=== PATIENT | female | born 1960 | race Caucasian/White ===

== ENCOUNTER → 2020-09-01 02:44 | Outpatient (CLI) | payer SELFPAY ==
[2020-09-02 04:48] LABS: Vitamin D 25 Total 43.9 ng/ml (30-100)
== END ==
PROVIDERS: PCP Family Medicine; Visit Provider Internal Medicine Endocrinology, Diabetes & Metabolism
DX: E55.9 Vitamin D deficiency, unspecified (principal); C73 Malignant neoplasm of thyroid gland; K21.9 Gastro-esophageal reflux disease without esophagitis
CPT/HCPCS: 36415; 82306

== ENCOUNTER 2021-09-09 03:54 | Outpatient (CLI) | payer OTHER, SELFPAY ==
[2021-09-09 15:33] LABS: TSH 0.55 uIU/mL (0.36-3.74)
[2021-09-09 21:59] LABS: Thyroglobulin Antibody <15 U/mL (<=60)
== END 2021-09-09 03:55 | disposition home or self-care (01) ==
PROVIDERS: PCP Family Medicine; Visit Provider Internal Medicine Endocrinology, Diabetes & Metabolism
DX: C73 Malignant neoplasm of thyroid gland (principal); E55.9 Vitamin D deficiency, unspecified
CPT/HCPCS: 36415; 84443; 86800

== ENCOUNTER 2023-01-27 15:07 | Emergency (ER) | payer OTHER, SELFPAY ==
[2023-01-27 15:26] VITALS: BP 124/73; PULSE 98; RESP 18; O2SAT 97
--- NOTE | 2023-01-27 16:12 | ED.GENADUL_ITS ---
Discharge Plan Disposition Patient Disposition: Home Condition: Stable Discharge Details Clinical Impression: Encounter for postoperative wound care Primary Care Provider: Gregory Lucero ED Provider: Joann Mina Home Meds and New Rx's Prescriptions: Continued Excedrin Tension Headache 1 TAB tablet 1 tab PO PRN PRN esomeprazole magnesium [Nexium 24HR] 20 MG tablet,delayed release (DR/EC) 20 mg PO PRN PRN levothyroxine 112 MCG tablet 125 mcg PO DAILY rabeprazole 20 mg Tablet,Delayed Release (Dr/Ec) 20 mg PO DAILY pantoprazole 40 mg tablet,delayed release (DR/EC) 40 mg PO DAILY gabapentin 300 mg capsule 300 mg PO PRN PRN Patient Comments: TAKE ONE CAPSULE BY MOUTH THREE TIMES A DAY NEEDED ergocalciferol (vitamin D2) 1,250 mcg (50,000 unit) capsule 5,000 mcg PO DAILY letrozole 2.5 mg Tablet 2.5 mg PO DAILY Lactobacillus rhamnosus GG 10 billion cell Capsule 1 cap PO DAILY mecobalamin (vitamin B12) 1,000 mcg Tablet,Chewable 1,000 mcg PO DAILY Discharge Instructions Instructions: Care For Your Absorbable Stitches (ED) Additional Instructions: Continue routine wound care as previously directed. Keep dressing clean dry and intact Monitor for purulent drainage fever increased pain or redness at the site and report immediately to your surgical team. Referrals: [facility] [Provider Group] (Call first thing Sunday for follow- up appointment with your surgical team return sooner for new or worsening symptoms) Gregory Lucero [Primary Care Provider] - Medical Decision Making Patient presents for wound check. No evidence of infection by physical exam. She is pink warm dry there is no fever vital signs are stable wound is well approximated no surrounding erythema no purulent drainage. She has some old bloody drainage on her dressing this is cleansed and redressed by nursing. She should follow-up with her outpatient team she is stable for discharge to home Medical Records Medical records reviewed: Yes I reviewed the patient's medical records. HPI General Mode of arrival: ambulatory . Date/Time Provider Initiated Documentation: 01/27/23 15:34 . Limitations to Documentation: no limitations . Information obtained by: patient . HPI Narrative: This is a 62-year-old female patient status postlumpectomy and lymph node resection on the left on November 23. Postoperatively she has had no fevers significant drainage increased pain. Today she was out and about and noted some increased drainage on her dressing. She made a phone call to her surgical team and has not received a call back so presented here for evaluation. She denies increased pain in the area she has had no fever feels in her usual state of health and improving from the procedure. Her surgical site is evaluated the wound is well approximated no stitches visualized. There is some old bloody drainage on the dressing. There is no surrounding erythema. Related Data Home Medications Medication Instructions Recorded Confirmed acetaminophen-caffeine 500 mg-65 1 tab PO PRN PRN 11/18/14 01/27/23 mg tablet (Excedrin Tension Headache) esomeprazole magnesium 20 mg 20 mg PO PRN PRN 04/25/16 03/17/18 tablet,delayed release (Nexium 24HR) levothyroxine 112 mcg tablet 125 mcg PO DAILY 03/17/18 01/27/23 Lactobacillus rhamnosus GG 10 1 cap PO DAILY 01/27/23 01/27/23 billion cell capsule ergocalciferol (vitamin D2) 1,250 5,000 mcg PO DAILY 01/27/23 01/27/23 mcg (50,000 unit) capsule gabapentin 300 mg capsule 300 mg PO PRN PRN 01/27/23 01/27/23 letrozole 2.5 mg tablet 2.5 mg PO DAILY 01/27/23 01/27/23 mecobalamin (vitamin B12) 1,000 1,000 mcg PO DAILY 01/27/23 01/27/23 mcg chewable tablet pantoprazole 40 mg tablet,delayed 40 mg PO DAILY 01/27/23 01/27/23 release rabeprazole 20 mg tablet,delayed 20 mg PO DAILY 01/27/23 01/27/23 release Allergies Allergy/AdvReac Type Severity Reaction Status Date / Time No Known Allergies Allergy Unverified 01/27/23 15:51 General Stated Complaint: Recheck DONALD: 4 Review of Systems All systems reviewed & are unremarkable except as noted in HPI and below PFSH All Active Problems (Updated 01/27/23 @ 16:17 by Joann Mina NP) Lipoma of torso (Acute) Encounter for postoperative wound care (Acute) Medical History (Updated 01/27/23 @ 16:17 by Joann Mina NP) Brain concussion GERD (gastroesophageal reflux disease) Surgical History (Updated 04/17/16 @ 14:11 by Malena Lopez) Colonoscopy - MAC (03/22/16) Dr Ballard, repeat in 7 yrs Family History Father Colon cancer Grandfather Colon cancer Maternal Uncle Colon cancer Maternal Uncle Colon cancer Social History Smoking/Tobacco Use Status: Never Smoking risk assessment performed?: Yes Drug use: Never Do you feel safe in your relationship?: Yes Exam Const General: cooperative, healthy appearing, comfortable and no acute distress Nutritional Appearance: average body habitus Orientation: alert, awake and oriented x3 HENMT Head: normal to inspection, normocephalic and atraumatic Mouth: oral mucosae normal Resp Effort & Inspection: normal respiratory effort Cardio Rate: regular rate Rhythm: regular rhythm GI Inspection: normal to inspection Skin General skin exam: ecchymosis, no fluctuance and no induration Lesions: lesion noted (Surgical incision well approximated some old bloody drainage on her gauze ) Rashes: no rashes Other: No purulent drainage. Area around incision is firm not fluctuant Course Vital Signs Vital signs: Vital Signs Pulse 98 H 01/27/23 15:26 Respiratory Rate 18 01/27/23 15:26 Blood Pressure 124/73 01/27/23 15:26 Pulse Oximetry 97 01/27/23 15:26 Pulse 98 H 01/27/23 15:26 Respiratory Rate 18 01/27/23 15:26 Respiratory Effort Normal, Non-Labored 01/27/23 15:39 Blood Pressure 124/73 01/27/23 15:26 Blood Pressure Position Sitting 01/27/23 15:26 Pulse Oximetry 97 01/27/23 15:26 Oxygen Delivery Method Room Air 01/27/23 15:26 Oxygen Flow Rate 0 01/27/23 15:26
== END 2023-01-27 16:24 | disposition home or self-care (01) ==
PROVIDERS: Emergency Provider Nurse Practitioner Acute Care; PCP Family Medicine
DX: Z98.890 Other specified postprocedural states (principal)
CPT/HCPCS: 99283

== ENCOUNTER 2023-09-06 07:56 | Emergency (ER) | payer OTHER, SELFPAY ==
--- NOTE | 2023-09-06 07:45 | DI.RAD_ITS ---
Exam(s) XR KNEE RT 3V AP,LAT,EMILIA XR ANKLE RT COMPLETE XR TIB/FIB RT EXAM: XR KNEE RT 3V AP,LAT,EMILIA and XR tib/fib RT and XR ankle RT complete CLINICAL HISTORY: Right knee pain. TECHNIQUE: 2D digital imaging was performed of the right knee. Eight views obtained. AP, lateral an d PA tunnel views were obtained. COMPARISON: There are no priors for comparison. FINDINGS: BONES: There is an acute oblique fracture through the distal fibula. The distal aspect of the fractu re lies just at the level of the ankle mortise. No bony destructive lesion is seen. There is a small plantar calcaneal spur. There is a small enthesophyte at the posterior calcaneus. JOINTS: The knee is normally aligned. There is a small suprapatellar joint effusion of the knee. The ankle joint is well maintained. SOFT TISSUE: There is soft tissue swelling about the ankle, particularly laterally. IMPRESSION: 1. There is an acute nondisplaced fracture involving the distal fibula. The most inferior aspect of the fracture lies just at the ankle mortise. The ankle joint is well maintained. 2. No other acute fracture or dislocation is seen. 3. Small suprapatellar joint effusion. 4. Soft tissue swelling about the ankle, particularly laterally. DATA REPOSITORY: RADIATION DOSE DELIVERED:
--- NOTE | 2023-09-06 07:59 | ED.GENADUL_ITS ---
HPI General DONALD: 4 Date/Time Provider Initiated Documentation: 09/06/23 07:58. HPI Narrative: MDM This is an overall very well-appearing normothermic and not tachycardic 63-year-old female with right fibular pain status post slip and fall concerning for tibial fracture for which patient will undergo plain films. No pain out of proportion to suggest necrotizing soft tissue infection. Primary survey intact. Reassuring shock index. No chest trauma and no shortness of breath so doubt pneumothorax so did not obtain chest x-ray. Patient has been ambulatory since her injury and has a stable pelvis so my suspicion for hip fracture is low. Patient has a warm well-perfused foot and did not hyperextend her right knee so my suspicion for popliteal arterial injury is low so I do not feel that the patient requires a CT angiogram. No lacerations that would require closure. Will treat with acetaminophen and ibuprofen. No preceding chest pain syncope nausea or vomiting so do not feel that the patient requires an ECG nor laboratory evaluation. 9:11 AM I was in touch with Dr. Jimenes from orthopedics. He requested repeat ankle films to assess mortise view and lateral. He advised that if these appeared stable at that the patient could be okay for protective weightbearing in cam boot with crutches. I have medicated with oxycodone in the setting of distal fibular fracture. Will repeat plain films. 9:30 AM Patient had no PDMP records so I prescribed her 7 immediate relief morphine tablets of 50 mg each. I advised her to take a stool softener while taking these opiates. I advised her to take acetaminophen and ibuprofen prior to taking morphine. I advised her not to drink alcohol or operate machinery or drive a car while taking morphine tablets. I advised her to keep her morphine tablets locked up. I advised her to return the morphine tablets to a medication at the pharmacy or in the hospital if she did not need them after her pain resolved. She was found to have a small suprapatellar joint effusion for which she was placed in a knee immobilizer. It certainly could be that her older right knee meniscus injury has been exacerbated. She had no proximal fibular fractures to suggest [place] injury. Patient and I discussed productive weightbearing. Will proceed with empiric trial of discharge with expectant outpatient management. Chronic conditions affecting the care of the patient: N/A History obtained from an outside historian: N/A External record review: N/A Medications: Acetaminophen ibuprofen oxycodone Social determinants of health affecting disposition: N/A Management discussed with: Dr. Jimenes Treatment/interventions considered: N/A Response to therapies provided: Improved pain in the ED HPI This is a 63-year-old female arrived to the emergency department via private vehicle in the setting of right lower extremity pain. Patient was reportedly outside carrying a chicken pail & her lunch box. She slipped on an icy mat. She twisted her right ankle. She called her neighbor who brought her to the emergency department. She has been able to bear weight on her right lower extremity as she walked inside and changed into sweatpants from [employer]. She had no preceding chest pain. She did not strike her head. She is not anticoagul ated. She denies routine tobacco and illicits. She rarely drinks ethanol. She has not noticed any lacerations. No pain in her bilateral upper extremities. She does report an old right knee meniscus injury that was never repaired. She feels as if her right knee gave out on her today. Exam General: Well-appearing in no acute distress speaking in complete sentences. Head: Normocephalic, atraumatic. Eye: Extraocular eye movements intact. No conjunctival injection. No scleral icterus. Ear, nose, mouth, throat: Grossly normal inspection. Normal voice, handling secretions normally. Neck: Trachea midline. Cardiovascular: Well-perfused distal extremities. Respiratory: Nonlabored respiration. Gastrointestinal: Nondistended abdomen. Musculoskeletal: Right lower extremity with tenderness to the proximal fibula and down through the fibula to the lateral malleolus. Right foot warm well- perfused with 2+ right PT and DP pulses. Cap refill less than 2 seconds in the right toes. Right foot nontender. Right knee with no significant laxity to valgus nor varus stress testing. No tenderness through right femur. Left lower extremity nontender. Bilateral upper extremities nontender. Skin: Normal for age and race, grossly normal temperature and turgor. No acute rash. Neurologic: Alert and appropriate, no apparent acute deficits. GCS 15 Psychiatric: Mood and manner are appropriate. Grooming and personal hygiene are appropriate. Related Data Home Medications Medication Instructions Recorded Confirmed acetaminophen-caffeine 500 mg-65 1 tab PO PRN PRN 11/18/09/06/24 mg tablet (Excedrin Tension Headache) levothyroxine 112 mcg tablet 125 mcg PO DAILY 03/17/18 09/06/23 Lactobacillus rhamnosus GG 10 1 cap PO DAILY 01/27/23 09/06/23 billion cell capsule ergocalciferol (vitamin D2) 1,250 5,000 mcg PO .weekly 01/27/23 09/06/23 mcg (50,000 unit) capsule mecobalamin (vitamin B12) 1,000 1,000 mcg PO .qod 01/27/23 09/06/23 mcg chewable tablet pantoprazole 40 mg tablet,delayed 40 mg PO DAILY 01/27/23 09/06/23 release morphine 15 mg immediate release 15 mg PO Q8H PRN #7 tabs 09/06/23 tablet Previous Rx's Medication Instructions Recorded morphine 15 mg immediate release 15 mg PO Q8H PRN #7 tabs 09/06/23 tablet Allergies Allergy/AdvReac Type Severity Reaction Status Date / Time No Known Allergies Allergy Unverified 09/06/23 08:06 PFSH All Active Problems (Updated 09/06/23 @ 09:22 by Gregory Ng MD) Closed fracture of distal end of right fibula (Acute) Lipoma of torso (Acute) Medical History (Updated 09/06/23 @ 09:22 by Gregory Ng MD) GERD (gastroesophageal reflux disease) Brain concussion Surgical History (Updated 04/17/16 @ 14:11 by Malena Lopez) Colonoscopy - MAC (03/22/16) Dr Ballard, repeat in 7 yrs Family History Father Colon cancer Grandfather Colon cancer Maternal Uncle Colon cancer Maternal Uncle Colon cancer Social History Smoking/Tobacco Use Status: Never Smoking risk assessment performed?: Yes Alcohol Intake: current Alcohol Intake frequency: holidays/special occasions only Alcohol type: beer Drug use: Never Substance use type: does not use Housing: house Do you feel safe at home: Yes Do you feel safe in your relationship?: Yes Medical Decision Making Quality:SDOH Health Related Social Needs: No Data to Display Discharge Plan Disposition Patient Disposition: Home Discharge Details Clinical Impression: Closed fracture of distal end of right fibula Primary Care Provider: April Byers ED Provider: Gregory Ng Home Meds and New Rx's Prescriptions: New morphine 15 mg tablet 15 mg PO Q8H PRNQty: 7 0RF Continued Excedrin Tension Headache 1 TAB tablet 1 tab PO PRN PRN levothyroxine 112 MCG tablet 125 mcg PO DAILY pantoprazole 40 mg tablet,delayed release (DR/EC) 40 mg PO DAILY ergocalciferol (vitamin D2) 1,250 mcg (50,000 unit) capsule 5,000 mcg PO .weekly Lactobacillus rhamnosus GG 10 billion cell Capsule 1 cap PO DAILY mecobalamin (vitamin B12) 1,000 mcg Tablet,Chewable 1,000 mcg PO .qod Discharge Instructions Instructions: Leg Fracture (ED) Additional Instructions: You were seen in the emergency department for your leg pain. You are found to have an acute nondisplaced fracture of your distal fibula as we discussed. Please wear this walking boot and you may bear weight protectively using crutches as needed. Please follow-up with orthopedic team. Please return to the emergency department if you develop worsening pain. Please also wear this knee brace. You may remove your walking boot and knee brace while you are resting. For your pain please take medications as follows: 1. Take acetaminophen (Tylenol), 1,000 mg (two 500 mg tabs) every 6 hours 2. Take ibuprofen (Advil), 400 mg every 6 hours. You are also receiving a stronger medication for pain. Please do not drive drink alcohol or operate any machinery while taking this stronger medication. If you have leftover morphine tablets following your injury please return these to the pharmacy or return this to the hospital where there is a medication disposal box. Please keep your opiates locked up. Please consider taking a stool softener if you use any of your morphine tablets as these can cause constipation. Referrals: Deniz Jimenes MD [ [facility] STAFF PHYSICIAN] - Discharge Data Discharge Date/Time-TO BE ENTERED AT DEPARTURE: 09/06/23 10:08
[2023-09-06 08:00] VITALS: BP 141/67; PULSE 69; RESP 16; TEMP 37.1; O2SAT 98
[2023-09-06] MEDS: Acetaminophen 500 MG TAB 1000 MG PO (08:12)
[2023-09-06] MEDS: Ibuprofen 600 MG TAB PO (08:12)
[2023-09-06] MEDS: oxyCODONE 5 MG TAB PO (09:07)
--- NOTE | 2023-09-06 09:35 | DI.RAD_ITS ---
Exam(s) XR ANKLE RT COMPLETE EXAM: XR ANKLE RT COMPLETE CLINICAL HISTORY: Ortho looking for better mortise and lateral. TECHNIQUE: 2D digital imaging was performed of the right ankle. Three images were obtained. AP, la teral and oblique views were obtained. COMPARISON: CR XR ANKLE RT COMPLETE from 09/06/2023 FINDINGS: BONES: There is again seen a minimally displaced oblique fracture of the distal fibula. No new fract ure is seen. No bony destructive lesion is seen. There is a small plantar calcaneal spur. JOINTS: The ankle mortise is normally aligned. SOFT TISSUE: Soft tissue swelling seen about the ankle particularly laterally. IMPRESSION: Stable alignment of the distal right fibular fracture. DATA REPOSITORY: RADIATION DOSE DELIVERED:
== END 2023-09-06 10:08 | disposition home or self-care (01) ==
PROVIDERS: Emergency Provider Emergency Medicine; PCP Nurse Practitioner
DX: S82.434A Nondisplaced oblique fracture of shaft of right fibula, initial encounter for closed fracture (principal); M77.31 Calcaneal spur, right foot; M25.461 Effusion, right knee; W01.0XXA Fall on same level from slipping, tripping and stumbling without subsequent striking against object, initial encounter; Y93.01 Activity, walking, marching and hiking; Y92.018 Other place in single-family (private) house as the place of occurrence of the external cause
CPT/HCPCS: 73562; 99284; 73590; 73610

== ENCOUNTER 2023-09-11 12:40 | Outpatient (CLI) | payer OTHER, SELFPAY ==
--- NOTE | 2023-09-11 08:00 | DI.RAD_ITS ---
Exam(s) XR ANKLE RT COMPLETE EXAM: XR ANKLE RT COMPLETE CLINICAL HISTORY: f/u fracture. TECHNIQUE: 2D digital imaging was performed. COMPARISON: CR XR ANKLE RT COMPLETE from 09/06/2023 FINDINGS: Five views. The oblique fracture in the distal fibula appears unchanged from the above study. No other fractures identified. Talar dome unremarkable. [place] stress view reveals minimal widening of the medial aspect of the ankle mortise. IMPRESSION: As above. DATA REPOSITORY: RADIATION DOSE DELIVERED:
== END 2023-09-11 12:41 | disposition home or self-care (01) ==
LOC: DIORS 12:40
PROVIDERS: PCP Nurse Practitioner; Visit Provider Student in an Organized Health Care Education/Training Program
DX: S82.831D Other fracture of upper and lower end of right fibula, subsequent encounter for closed fracture with routine healing (principal); X58.XXXD Exposure to other specified factors, subsequent encounter
CPT/HCPCS: 73610

== ENCOUNTER 2023-09-26 15:14 | Outpatient (CLI) | payer OTHER, SELFPAY ==
--- NOTE | 2023-09-26 08:37 | DI.RAD_ITS ---
Exam(s) XR ANKLE RT COMPLETE EXAM: XR ANKLE RT COMPLETE CLINICAL HISTORY: F/U FRACTURE. TECHNIQUE: 2D digital imaging was performed. Three views. COMPARISON: CR XR ANKLE RT COMPLETE from 09/11/2023 FINDINGS: BONES: There has been no change in the alignment the distal fibular fracture. No bony destructive le ryan is seen. Heel spur. JOINTS: The ankle mortise is normally aligned. No joint space narrowing. SOFT TISSUE: Diffuse swelling. IMPRESSION: Stable alignment of distal fibular fracture. No ankle mortise widening. DATA REPOSITORY: RADIATION DOSE DELIVERED:
== END 2023-09-26 15:15 | disposition home or self-care (01) ==
LOC: DIORS 15:15
PROVIDERS: PCP Nurse Practitioner; Visit Provider Student in an Organized Health Care Education/Training Program
DX: S82.831D Other fracture of upper and lower end of right fibula, subsequent encounter for closed fracture with routine healing (principal); X58.XXXD Exposure to other specified factors, subsequent encounter
CPT/HCPCS: 73610

== ENCOUNTER 2023-10-18 08:23 | Outpatient (CLI) | payer OTHER, SELFPAY ==
--- NOTE | 2023-10-18 08:15 | DI.RAD_ITS ---
Exam(s) XR ANKLE RT COMPLETE EXAM: XR ANKLE RT COMPLETE CLINICAL HISTORY: RIGHT FIB FX. TECHNIQUE: 2D digital imaging was performed. Three views. COMPARISON: CR XR ANKLE RT COMPLETE from 09/26/2023 FINDINGS: BONES: There is no change in the alignment of the distal fibular fracture. There is increased callus formation surrounding the fracture consistent with healing. No bony destructive lesion is seen. H eel spur again noted. JOINTS: The ankle mortise is normally aligned. Ankle joint space is maintained. SOFT TISSUE: Swelling IMPRESSION: Healing fracture of the distal fibula. DATA REPOSITORY: RADIATION DOSE DELIVERED:
== END 2023-10-18 08:24 | disposition home or self-care (01) ==
PROVIDERS: PCP Nurse Practitioner; Referring Provider Nurse Practitioner; Visit Provider Physician Assistant
DX: S82.831D Other fracture of upper and lower end of right fibula, subsequent encounter for closed fracture with routine healing (principal); X58.XXXD Exposure to other specified factors, subsequent encounter
CPT/HCPCS: 73610

== ENCOUNTER → 2023-10-30 02:52 | Outpatient (CLI) | payer OTHER, SELFPAY ==
--- NOTE | 2023-10-30 08:15 | DI.MRI_ITS ---
Exam(s) MR LOWER JOINT RT WO EXAM: MR LOWER JOINT RT WO CLINICAL HISTORY: PAIN,tear medial meniscus rt knee, [id number]. TECHNIQUE: Multiplanar multisequence MRI was performed. COMPARISON: CR XR KNEE RT 3V AP,LAT,EMILIA from 09/06/2023 FINDINGS: BONES: There is no fracture or contusion pattern. Small degenerative cysts near the tibial spines. JOINTS: A small to moderate-sized joint effusion is present. Articular cartilage: Patellofemoral joint: Tiny focal defect near apex. Medial femoral tibial joint: Articular cartilage is unremarkable. Lateral femoral tibial joint: Articular cartilage is unremarkable. TENDONS: Extensor mechanism: Unremarkable. Medial retinaculum: Unremarkable. Lateral retinaculum: Unremarkable. Popliteus: Unremarkable. MUSCLES: Unremarkable. MENISCI: The medial meniscus shows a bucket-handle type tear, with a portion of the meniscus displaced inferio r to the P posterior cruciate ligament. The lateral meniscus is unremarkable. SOFT TISSUES: Tiny popliteal cyst. Mild edema anterior to patellar tendon. LIGAMENTS: Anterior Cruciate: Full-thickness tear. Posterior Cruciate: Unremarkable. Medial Collateral:Mild surrounding edema but no evidence of tear. Lateral Collateral: Unremarkable. IMPRESSION: Full-thickness tear of the anterior cruciate ligament. Bucket-handle type tear of the medial meniscus. Question medial collateral ligament sprain. DATA REPOSITORY:
== END ==
PROVIDERS: PCP Nurse Practitioner; Visit Provider Student in an Organized Health Care Education/Training Program
DX: S83.241A Other tear of medial meniscus, current injury, right knee, initial encounter (principal); X58.XXXA Exposure to other specified factors, initial encounter
CPT/HCPCS: 73721

== ENCOUNTER 2023-11-13 13:16 | Outpatient (CLI) | payer OTHER, SELFPAY ==
--- NOTE | 2023-11-13 11:30 | DI.RAD_ITS ---
Exam(s) XR ANKLE RT COMPLETE EXAM: XR ANKLE RT COMPLETE CLINICAL HISTORY: F/U FRACTURE. TECHNIQUE: 2D digital imaging was performed of the right ankle. Four images were obtained. AP, lat eral and oblique views were obtained. COMPARISON: CR XR ANKLE RT COMPLETE from 10/18/2023 FINDINGS: BONES: There has been no change in alignment of the distal fibular fracture. Callus formation has de veloped about the fracture consistent with some interval healing. There is again seen a small planta r calcaneal spur. No bony destructive lesion is seen. JOINTS: The ankle mortise is normally aligned. SOFT TISSUE: Normal. IMPRESSION: No change in alignment of the distal fibular fracture. DATA REPOSITORY: RADIATION DOSE DELIVERED:
== END 2023-11-13 13:17 | disposition home or self-care (01) ==
LOC: DIORS 13:17
PROVIDERS: PCP Nurse Practitioner; Visit Provider Student in an Organized Health Care Education/Training Program
DX: S82.831D Other fracture of upper and lower end of right fibula, subsequent encounter for closed fracture with routine healing (principal); X58.XXXD Exposure to other specified factors, subsequent encounter
CPT/HCPCS: 73610

== ENCOUNTER 2023-12-05 15:41 | Outpatient (CLI) | payer OTHER, SELFPAY ==
--- NOTE | 2023-12-05 12:45 | DI.RAD_ITS ---
Exam(s) XR ANKLE RT COMPLETE EXAM: XR ANKLE RT COMPLETE CLINICAL HISTORY: F/U FRACTURE. TECHNIQUE: 2D digital imaging was performed of the right ankle. Three images were obtained. AP, la teral and oblique views were obtained. COMPARISON: CR XR ANKLE RT COMPLETE from 11/13/2023 FINDINGS: BONES: There has been no change in alignment of the distal right fibular fracture. There has been in creased callus formation about the fracture since the prior examination. The fracture line is still well visualized. There is a small plantar calcaneal spur. There is a small enthesophyte at the post erior calcaneus. No bony destructive lesion is seen. JOINTS: The ankle mortise is normally aligned. SOFT TISSUE: Soft tissue swelling about the ankle. IMPRESSION: Stable alignment of the distal right fibular fracture which shows evidence of further healing. DATA REPOSITORY: RADIATION DOSE DELIVERED:
== END 2023-12-05 15:42 | disposition home or self-care (01) ==
LOC: DIORS 15:41
PROVIDERS: PCP Nurse Practitioner; Visit Provider Student in an Organized Health Care Education/Training Program
DX: S82.831D Other fracture of upper and lower end of right fibula, subsequent encounter for closed fracture with routine healing (principal); X58.XXXD Exposure to other specified factors, subsequent encounter
CPT/HCPCS: 73610

== ENCOUNTER 2023-12-07 10:30 | Day surgery (SDC) | payer OTHER, SELFPAY ==
[2023-12-07] VITALS (13 sets, daily range): BP systolic 94–140; BP diastolic 49–73; PULSE 59–81; RESP 12–20; TEMP 36.2–36.8; O2SAT 94–99; BMI 31.1
--- NOTE | 2023-12-07 07:14 | W.PM.DSUDISC ---
Date of service: 12/07/23 Time of Service: 16:00 Discharge Plan Disposition Patient Disposition: Home Condition: Stable Discharge Details Attending Provider: Deniz Jimenes Primary Care Provider: April Byers Home Meds and New Rx's Prescriptions: New naproxen 250 mg tablet 250 - 500 mg PO BID PRN (Reason: moderate pain and swelling) Qty: 40 0RF oxycodone 5 mg tablet 5 - 10 mg PO .q4-6h PRN (Reason: severe pain) Qty: 18 0RF aspirin 81 mg capsule 81 mg PO DAILY 14 Days Qty: 14 0RF Continued Excedrin Tension Headache 1 TAB tablet 1 tab PO PRN PRN levothyroxine 112 MCG tablet 125 mcg PO DAILY pantoprazole 40 mg tablet,delayed release (DR/EC) 40 mg PO DAILY ergocalciferol (vitamin D2) 1,250 mcg (50,000 unit) capsule 5,000 mcg PO .weekly Lactobacillus rhamnosus GG 10 billion cell Capsule 1 cap PO DAILY Discharge Instructions Additional Instructions: Surgery: Right knee arthroscopy with ACL reconstruction (allograft) and partial medial & lateral meniscectomy Activity: Weightbearing as tolerated. No brace or crutches needed as soon as comfortable and stable on knee and ankle. Restore full knee extension as soon as possible. Perform early quad sets/quadriceps isometrics. Gradually increase flexion to full. Recommend elevation to minimize swelling discomfort. Encourage ankle pumps and wiggle toes to improve circulation. A physical therapy prescription will be sent electronically to begin in about 3 weeks. Avoid sports activities for about 9 months. Prescriptions: Aspirin 81 mg take 1 daily to prevent a blood clot for 14 days Naproxen 250 mg take 1-2 every 12 hours with a meal as needed for moderate pain Oxycodone 5 mg take 1-2 every 4-6 hours as needed for severe pain You may use [id number] Tylenol (acetaminophen) as needed for mild pain. These pain medications may be taken all at once or in different combinations as needed. Also, recommend Colace (docusate) as a stool softener as surgery and pain medicine cause constipation. You may try [id number] diphenhydramine (Benadryl) 25-50 mg nightly as a sleep aid Dressings: Leave dressing in place for 3 days. Loosen/adjust Epifanio bandage as needed for comfort. May then remove and leave open to air or cover incisions with Band-Aids. Leave the sticky Steri-Strips in place until they fall off or remove them after you shower. May shower after 5 days. Follow-up: 10-[address] Jimenes You may take off the leg compression stockings this evening at home. You may also leave them on a few days longer if you have a history of leg swelling or edema. Let us know right away if you develop any redness, drainage, fevers, chest pain, or trouble breathing. Do not drink alcohol or drive for at least 24 hours after anesthesia. Please call the office during business hours with any questions or concerns. Stand Alone Forms: Anesthesia Discharge Inst., Igor.Nerve Block Instructions, Janine Love (DSU) Referrals: Deniz Jimenes MD [ [facility] STAFF PHYSICIAN] - 12/19/23 11:30 am Discharge Orders Discharge Orders: Discharge Order (Routine); Ordered 12/07/23 Ordered By: Yazmin Pacheco DS: Diagnosis Discharge Diagnosis (1) Right ACL tear: Status: Acute (2) Tear of medial meniscus of right knee: Status: Acute
--- NOTE | 2023-12-07 07:24 | W.PM.OP ---
Date of service: 12/07/23 Time of Service: 12:30 Operative Note Operative Note DATE OF PROCEDURE: 12/07/23 PRE-OP DIAGNOSIS: Right knee: 1. ACL rupture 2. Bucket handle medial meniscus tear 3. Chondromalacia Right knee: 1. ACL rupture 2. Bucket handle medial meniscus tear 3. Chondromalacia 4. Small posterior horn lateral meniscus tear PROCEDURE: Right knee: 1. ACL reconstruction, CPT #69360: Quadriceps allograft 2. Partial medial & lateral meniscectomy, CPT #80281 SURGEON: Deniz Jimenes MANAGER FRONT OFFICE: Yazmin Pacheco ANESTHESIA TYPE: Local By Surgeon, General LMA/ETT and Primary Nerve Block Refer to Anesthesia Record ESTIMATED BLOOD LOSS: 10 TOURNIQUET TIME: 0 COMPLICATIONS: None Patient was transported to: PACU Patient's condition: stable Implants: Arthrex ACL TightRope II RT and ABS with 8x12 mm cortical button QuadLink pre-sutured quadriceps allograft: 9.5 x 67 mm Indications: Please see complete medical record for details. Findings: Exam under anesthesia: Full range of motion, stable varus and valgus stress, grossly positive Huong testing. Positive pivot shift. Arthroscopic findings: Obviously displaced bucket-handle medial meniscus tear containing the majority of the posterior horn. Degenerative and enlarged frayed displaced meniscus tissue. Small posterior horn lateral meniscus tear near the root with partial root involvement. Moderate diffuse chondromalacia including moderate medial compartment narrowing. Complete ACL mid substance tear. Procedure Description: In the operating room, general anesthesia was induced. The patient was positioned supine on the operating room table. All bony prominences were well-padded. Preoperative antibiotics were administered. The knee was prepped and draped in the usual sterile fashion. The correct patient, procedure, and side of the procedure were all verified prior to incision. Exam under anesthesia was performed. Local anesthetic containing epinephrine was infiltrated about the planned anteromedial, anterolateral, lateral distal femoral, and pretibial surgery sites. The standard high and tight anterolateral and anteromedial portals were established and a complete diagnostic arthroscopy was performed with relevant findings detailed above. A passport cannula was inserted in both the anteromedial and anterolateral portals. The large displaced medial meniscus tissue was attempted to be reduced, it appeared quite degenerative and the medial compartment moderately narrowed. It could be reduced using the blunt obturator into the medial compartment, but did not appear to be good enough quality at the patient's age and considering the compartment narrowing to really attempt repair. It was then readily removed using the mechanical shaver and meniscal biters to contour the meniscal remnant into a stable margin. There was moderate remnant anterior horn and body, and more diminutive remnant posteriorly. The lateral meniscus then inspected and demonstrated mild fraying and radial tearing partially near the root. This was debrided lightly with mechanical shaver and meniscal biters to a more stable appropriate margin. In the intercondylar area, the ACL remnant was removed leaving enough footprint on the femur and tibia to localize anatomic socket placement. A small notchplasty was performed to allow proper visualization of the back wall. The graft was measured and prepared on the back table. The TightRope II BTB and TightRope II ABS adjustable-loop cortical suspensory fixation implants were loaded on QuadLink pre-sutured quadriceps allograft. The femoral and measured 9.5 mm and tibial end 10 mm. The graft was marked at 20 mm from each end. On the ABS side, the tensioning sutures were marked and a shuttle suture was added. The graft was manually tensioned and the construct did not demonstrate any elongation. The graft was then compressed in a graft tube and covered with vancomycin soaked sponges. The femoral guide was then placed through the anterolateral portal carefully targeting the appropriate anatomic ACL origin. The outer 9 mm diameter of the guide was positioned anatomically with appropriate space between the proximal and posterior articular margins. On the lateral thigh, drill guide position and angle adjusted to about 60 degree angle to the longitudinal axis of the femur in the coronal plane and 20 degree angle to the trans-epicondylar axis in the axial plane to create the most optimal femoral socket. Knife and snap were used to open the skin and IT band and placed the drill guide on bone while maintaining appropriate position on the lateral wall. The tunnel length was noted to be used for marking and passing the femoral button. The flip cutter was then drilled to the appropriate location. The drill guide malleted 7 mm into the cortex. The remainder of the targeting guide removed. The FlipCutter was deployed to 9.5 mm and retrograde reaming done to a depth of 30 mm. Bony debris was removed with the shaver. The flip cutter was then closed, withdrawn, and a FiberStick used to pass a #2 FiberWire shuttle stitch, which was withdrawn out the anterolateral portal. The tibial guide was then used to target the anatomic ACL insertion through the anteromedial portal. The drill angle adjusted to 57.5 degrees and a pretibial incision made. The drill guide was placed on bone, tunnel length noted, and the flip cutter drilled to the appropriate location. The drill guide malleted 7 mm into the cortex. The remainder of the targeting guide removed. The FlipCutter was deployed to 10mm and retrograde reaming done to a depth of 30 mm. Bony debris was removed with the shaver. The flip cutter was then closed, withdrawn, and a FiberStick used to pass a #2 FiberWire shuttle stitch, which was withdrawn out the anteromedial portal. The mechanical shaver was used to remove bone debris as well as chamfer and remove soft tissue from the edges of the sockets. A femoral shuttle sutures were withdrawn out the anterior medial portal. The PassPort was removed. This portal dilated to accommodate the graft size. The graft was brought over to the knee and the femoral sutures shuttled out the lateral thigh and advanced until the button was near the far cortex. Under arthroscopic visualization with the knee slightly hyperflexed, and the button was then passed and flipped on the far cortex. Counter traction was then maintained on the tibial side of the graft while it was carefully advanced into the knee and then about 15 mm into the femoral socket. The tibial sutures were then shuttled through the tibial tunnel and passing stitch removed while carefully noting the tensioning stitches. The graft was then dunked about 15 mm into the tibial socket. 8x12 mm ABS button was then loaded to the ABS loop and tension sutures used to bring the cortical button down to bone. The graft was advanced and then provisionally tensioned on both the femoral and tibial sides. The knee was then cycled 22 times, tensioning rechecked, and final tightening done with the knee in full extension with a moderate reverse Huong maintained. The graft position and tension were appropriate. There was no impingement in full extension. Huong exam was stable. Femoral passing sutures were removed. Backup knots were then tied on both sides and suture tails cut. The knee and all portals were copiously irrigated and then knee drained of arthroscopic fluid. 3-0 Monocryl was used to close the portals and small incisions in a buried interrupted fashion. Mastisol, Steri-Strips, Xeroform, 4 x 4 gauze, and sterile soft roll was applied. The extremity was wrapped gently with an Epifanio bandage. A soft knee immobilizer placed. The patient awoke from anesthesia without complication and was transferred to the recovery room in a stable condition.
--- NOTE | 2023-12-07 11:31 | W.ANESPRE ---
General Info Date of Service Date Performed: 12/07/23 Height: 5 ft 3 in Weight: 79.7 kg Body Mass Index (BMI): 31.1 Surgical Procedure: Operation Date: 12/07/23 12:55 Proposed Procedure Side Surgeon p Knee ACL Reconstruction (Allograft). Medial Menisectomy VS Repair Right Deniz Jimenes MD Meds Allergies and Home Medications Allergies Allergy/AdvReac Type Severity Reaction Status Date / Time No Known Allergies Allergy Verified 12/07/23 10:49 Home Medication Medication Instructions Recorded acetaminophen-caffeine 500 mg-65 1 tab PO PRN PRN 11/18/15 mg tablet (Excedrin Tension Headache) levothyroxine 112 mcg tablet 125 mcg PO DAILY 03/17/18 Lactobacillus rhamnosus GG 10 1 cap PO DAILY 01/27/23 billion cell capsule ergocalciferol (vitamin D2) 1,250 5,000 mcg PO .weekly 01/27/23 mcg (50,000 unit) capsule pantoprazole 40 mg tablet,delayed 40 mg PO DAILY 01/27/23 release Current Visit Medications: Current Medications Generic Name Dose Route Start Last Admin Trade Name Freq PRN Reason Stop Dose Admin Ringer's Solution 1,000 mls @ 30 mls/hr 12/07/23 06:00 IV 12/07/23 23:59 INFUSION DAVID Cefazolin Sodium/Dextrose 2 gm in 50 mls @ 100 mls/hr 12/07/23 06:00 Ancef Duplex IVPB 12/07/23 23:59 PREOP DAVID Tranexamic Acid/Sodium Chloride 1,000 mg in 100 mls @ 600 mls/hr 12/07/23 06:00 IVPB 12/07/23 23:59 DIRECTED DAVID IV Miscellaneous Supplies 1 each 12/07/23 06:00 Iv Access IV 12/07/23 23:59 DIRECTED DAVID Oxycodone HCl 0 mg 12/07/23 07:14 Oxycodone 5 Mg Tab PO 01/06/24 07:13 Q3H PRN PRN Pain Sodium Chloride 0 ml 12/07/23 06:00 Normal Saline Flush 10 Ml Syr IV 12/07/23 23:59 PRN PRN Sodium Chloride 0 ml 12/07/23 06:00 Normal Saline 10 Ml Vial IJ 12/07/23 23:59 DIRECTED PRN Sterile Water 0 ml 12/07/23 06:00 Water,Injection,Sterile 10 Ml Vial IJ 12/07/23 23:59 DIRECTED PRN PFSH Active Problems Active Problems: Problem Status Onset Code Right ACL tear S83.511A Fracture of distal end of right fibula ~09/06/23 S82.831A Tear of medial meniscus of right knee 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 Medical History Medical History Hx of thyroid cancer GERD (gastroesophageal reflux disease) Brain concussion Surgical History Surgical History History of tonsillectomy Hx of appendectomy Hx of thyroidectomy Hx of hysterectomy Colonoscopy - [facility] (03/22/16) Dr Ballard, repeat in 7 yrs Tobacco Smoking/Tobacco Use Status: Never Alcohol Alcohol Intake: current Alcohol intake frequency: holidays/special occasions only Alcohol type: beer Substance Use Substance use: Never Substance use type: does not use Vital Signs and Lab Results Vital Signs Most Recent Vital Signs in EMR: Most Recent Vital Signs Temp Pulse Resp BP Pulse Ox 36.8 C 59 L 16 135/57 L 95 12/07/23 11:05 12/07/23 11:26 12/07/23 11:26 12/07/23 11:26 12/07/23 11:26 Lab Results Blood Type / Crossmatch: No Data to Display Complete Blood Count: No Data to Display Complete Metabolic Panel: No Data to Display Liver Function Panel: No Data to Display Coagulation Panel: No Data to Display Cardiac Panel: No Data to Display Arterial Blood Gas: No Data to Display Venous Blood Gas: No Data to Display Pancreas Panel: No Data to Display Thyroid Panel: No Data to Display Infectious Disease: No Data to Display Blood Cultures: No Data to Display Toxicology Panel: No Data to Display Anesthesia Assessment and Plan Anesthesia History Personal History: PONV and Delayed Emergence Family History: No Family History of Anesthesia Complications Exercise Tolerance Exercise Tolerance: Metabolic Equivalents>4 Pertinent Negatives Pertinent Negatives: No Major Cardiovascular Symptoms or Complaints, No Major Pulmonary Symptoms or Complaints and No History of CVA/TIA Cardiac & Pulmonary Exam Cardiac Exam: Normal S1/S2 Heart Sounds Pulmonary Exam: Clear Bilateral Breath Sounds Implantable Cardiac Device Does patient have a Pacemaker or an ICD?: No Airway Exam Known Difficult Airway: No Mallampati Class: 2 Mouth Opening: Normal (> 3cm) Thyromental Distance: Less than 3 cm Neck Range of Motion: Full ROM Neck Circumference: Normal Teeth Condition: Normal Dentition ASA Classification ASA Score: ASA 2 Emergency Case?: No NPO Status NPO Status: NPO Clears >2 hours, Solids >8 hours Anesthesia Plan Resuscitation Status: Full Code Anesthesia Technique: General Anesthesia Airway Planned: Endotracheal Tube Pain Management: Surgeon and patient request nerve block Monitors Used: Standard Monitors
[2023-12-07] MEDS: FAMOTIDINE 20 MG/50 ML BAG 200 MG IVPB (12:00)
[2023-12-07] MEDS: Lactated Ringers 1,000 ML 30 ML IV (12:00)
[2023-12-07] MEDS: TRANEXAMIC ACID/SOD. CHL. 1,000 MG/100 ML BAG 600 MG IVPB (12:35)
[2023-12-07] MEDS: ceFAZolin 2 GM/50 ML BAG IVPB (12:36)
--- NOTE | 2023-12-07 12:59 | W.ANESNERVE ---
Nerve Block Single Injection Procedure Date and Time Date Performed: 12/07/23 Procedure Start: 12:00 Location Where Procedure Performed Procedure Location: Day Surgery Unit Reason Performed: Postoperative Analgesia Requesting Provider: Deniz Jimenes Timeout Performed Timeout Performed: Yes Monitoring Used ECG, Blood Pressure, SpO2 and See EMR for corresponding vital signs Sterility Sterility: Hand Hygiene, Surgical Cap, Surgical Mask, Sterile Gloves, Sterile Drape/Sheet and Chlorhexidine Sedation Given During Procedure Sedation Given (Indicate Dose Given): No Sedation given Patient Mental Status Patient Mental Status: Awake Nerve Block 1st Nerve Block: Laterality: Right Block Type: iPACK Ultrasound Image Saved?: Yes Needle / Catheter Used: 100mm SonoPlex II Local Anesthetic Bolus (Indicate Dose Given): Lidocaine used for local infiltration of skin, Injected in 3-5ml increments after negative blood aspiration, Bupivacaine 0.25% Dose:: 10ml and Exparel Dose:: 10ml Additives (Indicate Dose Given): None Ultrasound: Sterile probe cover and gel used Nerve Stimulator: Not Used Paresthesia: None Procedure Tolerated: No Complications and Patient tolerated well Procedure Outcome: Successful Performed By: Chuy Medeiros 2nd Nerve Block: Laterality: Right Block Type: Adductor Canal Ultrasound Image Saved?: Yes Needle / Catheter Used: 100mm SonoPlex II Local Anesthetic Bolus (Indicate Dose Given): Lidocaine used for local infiltration of skin, Injected in 3-5ml increments after negative blood aspiration, Bupivacaine 0.25% Dose:: 10ml and Exparel Dose:: 10ml Additives (Indicate Dose Given): None Ultrasound: Sterile probe cover and gel used Nerve Stimulator: Not Used Paresthesia: None Procedure Tolerated: No Complications and Patient tolerated well Procedure Outcome: Successful Performed By: Chuy Medeiros
[2023-12-07] MEDS: EPINEPHrine 10 MG/10 ML ML (14:06)
[2023-12-07] MEDS: fentaNYL 100 MCG/2 ML VIAL IVP ×2 (15:04→15:19)
--- NOTE | 2023-12-07 15:38 | W.ANESPOSTOP ---
Postoperative Evaluation Date, Time and Location Date Performed: 12/07/23 Time Performed: 15:38 Patient Location: PACU Vital Signs Most Recent Imported Vital Signs: Most Recent Vital Signs Temp Pulse Resp BP Pulse Ox 36.3 C L 61 12 108/55 L 96 12/07/23 15:30 12/07/23 15:30 12/07/23 15:30 12/07/23 15:30 12/07/23 15:30 Pain Score Most Recent Pain Score: Most Recent Pain Score Pain Level 5 12/07/23 15:30 Assessment Mental Status: Awake (Alert & Oriented to Patient Baseline) Airway and Respiratory Function: Patent airway with normal (patient baseline) respiratory exam Cardiovascular Function: Hemodynamically Stable Hydration Status: Adequately Hydrated Nausea & Vomiting: No Nausea or Vomiting Pain: Pain is tolerable per patient Peripheral Nerve Block: Regional nerve block not resolved at time of post operative discharge
[2023-12-07] MEDS: oxyCODONE 5 MG TAB PO (16:30)
== END 2023-12-07 17:30 | disposition home or self-care (01) ==
LOC: SUR 10:31
PROVIDERS: PCP Nurse Practitioner; Visit Provider Student in an Organized Health Care Education/Training Program
PROC: (CPT 29888; principal; 2023-12-07 12:45)
DX: S83.511A Sprain of anterior cruciate ligament of right knee, initial encounter (principal); S83.241A Other tear of medial meniscus, current injury, right knee, initial encounter; X58.XXXA Exposure to other specified factors, initial encounter
CPT/HCPCS: 29888; 29880; 76942; C9290; J0131; J0665; J0690; J1100; J1885; J2001; J2250; J2371; J2405; J2704; J3010; J3370

== ENCOUNTER 2024-02-06 10:47 | Outpatient (CLI) | payer OTHER, SELFPAY ==
--- NOTE | 2024-02-06 10:49 | DI.RAD_ITS ---
Exam(s) XR ANKLE RT COMPLETE EXAM: XR ANKLE RT COMPLETE CLINICAL HISTORY: F/U FRACTURE. TECHNIQUE: 2D digital imaging was performed of the right ankle. Five images were obtained. AP, lat eral and oblique views were obtained. COMPARISON: CR XR ANKLE RT COMPLETE from 12/05/2023 FINDINGS: BONES: There is a healed distal fibular fracture. No acute fracture is identified. There is again s een a small spur at the plantar surface of the calcaneus. There is a tiny enthesophyte at the automatic car wash attendant ior calcaneus. No bony destructive lesion is seen. JOINTS: The ankle mortise is normally aligned. The joint spaces are well maintained. SOFT TISSUE: There is soft tissue swelling about the ankle. IMPRESSION: Healed distal fibular fracture. DATA REPOSITORY: RADIATION DOSE DELIVERED:
== END 2024-02-06 10:48 | disposition home or self-care (01) ==
LOC: DIORS 10:49
PROVIDERS: PCP Nurse Practitioner; Visit Provider Student in an Organized Health Care Education/Training Program
DX: S82.831D Other fracture of upper and lower end of right fibula, subsequent encounter for closed fracture with routine healing (principal); X58.XXXD Exposure to other specified factors, subsequent encounter
CPT/HCPCS: 73610

== ENCOUNTER 2024-06-21 13:10 | Outpatient (CLI) | payer OTHER, SELFPAY ==
--- NOTE | 2024-06-21 13:00 | RT.EKG_ITS ---
APPROVED REPORT Exam: Resting ECG Reason for Exam: Numbness/soreness of L arm/throat Patient Location: O HR:70 bpm ECG Measurements Heart Rate 70 AXIS CO 158 P 63 QRSd 101 QRS 3 QT 396 T 32 QTc 428 Conclusion Sinus rhythm...normal P axis, V-rate 50- 99 Borderline T abnormalities, anterior leads...T flat or neg, V2-V4
== END 2024-06-21 13:11 | disposition home or self-care (01) ==
LOC: DI.CM 13:11
PROVIDERS: PCP Nurse Practitioner; Visit Provider Physician Assistant
DX: R20.0 Anesthesia of skin (principal)
CPT/HCPCS: 93010

== ENCOUNTER 2024-06-21 14:20 | Emergency (ER) | payer OTHER, SELFPAY ==
[2024-06-21] VITALS (20 sets, daily range): BP systolic 126–154; BP diastolic 52–73; PULSE 54–69; RESP 12–18; TEMP 36.4; O2SAT 97–100
--- NOTE | 2024-06-21 14:15 | RT.EKG_ITS ---
APPROVED REPORT Exam: Resting ECG Reason for Exam: Chest Pain Patient Location: E HR:62 bpm ECG Measurements Heart Rate 62 AXIS CA 154 P 63 QRSd 90 QRS 3 QT 397 T 10 QTc 402 Conclusion Sinus rhythm...normal P axis, V-rate 60- 99 Sinus rhythm normal axis normal intervals T wave inversion V1 V2
--- NOTE | 2024-06-21 14:30 | DI.CT_ITS ---
Exam(s) CT CHEST PE CTA EXAM: CT CHEST PE CTA CLINICAL HISTORY: left anter chest pain, sob, hx breast ca. TECHNIQUE: Imaging Protocol: Axial CT angiography was performed with multi-slice acquisition and mu lti-planar and/or 3D reconstructions. CONTRAST MATERIAL: Intravenous: Omnipaque 350 contrast volume:100 mL COMPARISON: CR Acute Abd Series w 1 view CXR from 11/08/2023 FINDINGS: Tracheobronchial tree: Patent where visualized. No bronchiectasis. Pulmonary parenchyma: No consolidation or dominant measurable mass. No architectural distortion. Pulmonary Arteries: No evidence of filling defect to suggest pulmonary emboli. Mediastinum and [place]: No dominant adenopathy or fluid collection. The esophagus is unremarkable. Visualized thyroid gland: Surgical clips are seen in the thyroid bed. Pleura: No effusion or pneumothorax. Heart: The heart is not dilated. No coronary artery calcifications are seen. No pericardial effusion. Aorta: Thoracic aorta non-dilated. Due to the timing of the bolus, there is suboptimal opacification of the thoracic aorta. Upper abdomen: There is a small hiatal hernia. Soft tissues: Unremarkable. Bones: Within normal limits for the patient's age. IMPRESSION: 1. There is no evidence of a pulmonary embolism or thoracic aortic aneurysm. 2. No acute pulmonary process. RADIATION DOSE DELIVERED: 97.41mGy.cm Total DLP DATA REPOSITORY: All CT scans at this facility are submitted to the National Radiology Data Registry (NRDR) Dose Index Registry (DIR) with the [employer] (ACR). RADIATION OPTIMIZATION: All CT scans at this facility use at least one of these dose optimization te chniques: automated exposure control; mA and/or kV adjustment per patient size (includes targeted exa ms where dose is matched to clinical indication); or iterative reconstruction.
--- NOTE | 2024-06-21 14:43 | W.ED.GENAD ---
Discharge Plan Disposition Patient Disposition: Home Condition: Improving Discharge Details Chief Complaint: Chest Pain Clinical Impression: Chest pain Primary Care Provider: April Byers ED Provider: Rico Wang Home Meds and New Rx's Prescriptions: No Action albuterol sulfate 90 mcg/actuation HFA aerosol inhaler 2 puff inhalation Q6H PRN (Reason: shortness of breath or wheezing) Qty: 8.5 0RF Excedrin Tension Headache 1 TAB tablet 1 tab PO PRN PRN levothyroxine 112 MCG tablet 125 mcg PO DAILY pantoprazole 40 mg tablet,delayed release (DR/EC) 40 mg PO DAILY Lactobacillus rhamnosus GG 10 billion cell Capsule 1 cap PO DAILY Discharge Instructions Instructions: Chest Pain, Adult ED Additional Instructions: Please follow-up with your primary care physician. Please return to the emergency department for any worsening symptoms HPI General Date/Time Provider Initiated Documentation: 06/21/24 14:32. HPI Narrative: 63-year-old female history of breast cancer, orthopedic procedures earlier this year, presents with nonexertional anterior chest pain rating up into her neck associate with mild shortness of breath over the last day. Denies leg pain or swelling denies exogenous estrogen use Related Data Home Medications ?Medication ?Instructions ?Recorded ?Confirmed acetaminophen-caffeine 500 mg-65 1 tab PO PRN PRN 11/18/14 06/21/24 mg tablet (Excedrin Tension Headache) levothyroxine 112 mcg tablet 125 mcg PO DAILY 03/17/18 06/21/24 Lactobacillus rhamnosus GG 10 1 cap PO DAILY 01/27/23 06/21/24 billion cell capsule pantoprazole 40 mg tablet,delayed 40 mg PO DAILY 01/27/23 06/21/24 release albuterol sulfate 90 mcg/actuation 2 puff inhalation Q6H PRN 06/11/24 06/21/24 aerosol inhaler shortness of breath or wheezing #8.5 grams Previous Rx's ?Medication ?Instructions ?Recorded albuterol sulfate 90 mcg/actuation 2 puff inhalation Q6H PRN 06/11/24 aerosol inhaler shortness of breath or wheezing #8.5 grams Allergies Allergy/AdvReac Type Severity Reaction Status Date / Time No Known Allergies Allergy Verified 06/21/24 14:33 General Stated Complaint: Chest Pain DONALD: 3 Exam Narrative Exam Narrative: Alert interactive Moist mucous membranes tolerating secretions Normal voice no respiratory stress lungs clear bilaterally no wheezes rales or rhonchi Normal heart sounds no murmurs rubs or gallops No peripheral edema Alert interactive moving all extremities without deficit Course Vital Signs Vital signs: Vital Signs Temperature 36.4 C 06/21/24 14:25 Pulse 69 06/21/24 14:25 Respiratory Rate 16 06/21/24 14:25 Blood Pressure 126/73 06/21/24 14:25 Pulse Oximetry 97 06/21/24 14:25 Temperature 36.4 C 06/21/24 14:25 Temperature Source Oral 06/21/24 14:25 Pulse 69 06/21/24 14:25 Respiratory Rate 16 06/21/24 14:25 Blood Pressure 126/73 06/21/24 14:25 Pulse Oximetry 97 06/21/24 14:25 Oxygen Delivery Method Room Air 06/21/24 14:25 Oxygen Flow Rate 0 06/21/24 14:25 Medical Decision Making 63-year-old female presents with nonexertional anterior chest pain rating to her neck associate with mild shortness of breath over the last day, history of breast cancer, history of multiple orthopedic procedures this year, recent pneumonia, denies leg swelling or pain denies exogenous estrogen use, normotensive nontachycardic nontachypneic nonhypoxic, consider ACS versus PE versus pleurisy versus pleural effusion versus costochondritis lower suspicion for aortic dissection or aortic aneurysm lower suspicion for Boerhaave's given no vomiting, will obtain basic labs imaging will load with aspirin close reassessment 17: 00 patient resting comfortably asymptomatic. Labs imaging unremarkable 2 troponin negative no evidence of PE. Consider pleurisy post recent pneumonia versus costochondritis. Home care instructions and return precautions given Quality:SDOH Health Related Social Needs: No Data to Display PFSH All Active Problems (Updated 06/21/24 @ 17:00 by Rico Wang MD) Chest pain (Acute) Acute lateral meniscus tear of right knee (Acute) Right ACL tear (Acute) s/p Right knee arthroscopy with ACL reconstruction (allograft) and partial medial & lateral meniscectomy 12/07/23 Fracture of distal end of right fibula (Acute ~09/06/23) Tear of medial meniscus of right knee (Acute) Lipoma of torso (Acute) Medical History Hx of thyroid cancer GERD (gastroesophageal reflux disease) Brain concussion Surgical History History of tonsillectomy Hx of appendectomy Hx of thyroidectomy Hx of [place]rectomy [place] [facility] [place] Ballard, repeat in 7 yrs Family History Father Colon cancer Grandfather Colon cancer Maternal Uncle Colon cancer Maternal Uncle Colon cancer Social History Smoking/Tobacco Use Status: Never Smoking risk assessment performed?: Yes Alcohol Intake: current Alcohol Intake frequency: holidays/special occasions only Alcohol type: beer Drug use: Never Substance use type: does not use Housing: house Do you feel safe at home: Yes Do you feel safe in your relationship?: Yes
[2024-06-21] MEDS: Aspirin 81 MG CHEW 324 MG CH (15:11)
[2024-06-21 15:26] LABS: Abs Immature Grans 0.02 10^3/uL (0.0-0.06); Absolute Basophil Count 0.04 10^3/uL (0.0-0.2); Absolute Eosinophil Count 0.04 10^3/uL (0.0-0.7); Absolute Lymphocyte Count 2.66 10^3/uL (1.2-3.4); Absolute Monocyte Count 0.56 10^3/uL (0.1-0.8); Absolute Neutrophil Count 4.52 10^3/uL (1.2-6.7); Basophils % 0.5 %; Eosinophils % 0.5 %; HCT 40.4 % (36.0-46.0); HGB 12.8 g/dL (11.2-15.7); Immature Grans % 0.3 %; Lymphocytes % 33.9 %; MCHC 31.7 % (32.0-36.0); MCV 91 fL (80-95); MPV 9.4 fL (8.0-11.0); Monocytes % 7.1 %; Neutrophils % 57.7 %; Platelet Count 280 10^3/uL (130-400); RBC 4.42 10^6/uL (3.93-5.22); RDW 12.6 % (11.7-14.6); RDW-SD 42.1 fL; WBC 7.84 10^3/uL (4.4-10.8)
[2024-06-21] MEDS: Omnipaque 350 MG/ML 100 ML BTL IJ (15:29)
[2024-06-21] MEDS: Normal Saline - Diluent 50 ML VIAL IJ (15:29)
[2024-06-21 15:34] LABS: PTT Activated 24.6 sec (23.6-32.8); Prothrombin Time 10.3 sec (9.1-11.1)
[2024-06-21 15:51] LABS: ALT 23 U/L (14-59); AST 17 U/L (15-37); Albumin 3.4 g/dL (3.4-5.0); Alkaline Phosphatase 83 U/L (46-116); Anion Gap 7.3 mmol/L (3-11); BUN 11 mg/dL (7-18); CO2 28.7 mmol/L (21.0-32.0); CREATININE 0.8 mg/dL (0.55-1.02); Calcium 8.6 mg/dL (8.5-10.1); Chloride 107 mmol/L (98-107); Estimated GFR 82.74 (mL/min/1.73m2); Glucose 92 mg/dL (74-106); NT-proBNP 31 pg/mL (<300); Potassium 3.7 mmol/L (3.5-5.1); Sodium 143 mmol/L (136-145)
[2024-06-21 15:54] LABS: Troponin I < 4 ng/L (<or=51)
[2024-06-21 16:21] LABS: Troponin I < 4 ng/L (<or=51)
[2024-06-21] MEDS: Ketorolac 15 MG/ML VIAL IVP (16:35)
== END 2024-06-21 17:17 | disposition home or self-care (01) ==
PROVIDERS: Emergency Provider Emergency Medicine; PCP Nurse Practitioner
DX: R07.9 Chest pain, unspecified (principal); R06.02 Shortness of breath
CPT/HCPCS: 71275; 80053; 93005; 96374; 99285; 83880; 84484; 85025; 85610; 85730; 93010; 99283; J1885; J3490

== ENCOUNTER 2024-08-22 09:54 | Day surgery (SDC) | payer OTHER, SELFPAY ==
[2024-08-22 10:55] VITALS: BP 147/76; PULSE 61; RESP 20; TEMP 36.2; O2SAT 98
[2024-08-22 11:03] VITALS: BP 147/76; PULSE 61; RESP 20; TEMP 36.2; O2SAT 98
--- NOTE | 2024-08-22 11:16 | W.ANESPRE ---
General Info Date of Service Date Performed: 08/22/24 Height: 5 ft 3 in Weight: 82 kg Body Mass Index (BMI): 32.0 Surgical Procedure: Operation Date: 08/22/24 10:20 Proposed Procedure Side Surgeon p Gastroscopy Lilia Swan, DO Actual Procedure Side Surgeon p Gastroscopy with bx's Not Applicable Lilia Swan, DO Meds Allergies and Home Medications Allergies Allergy/AdvReac Type Severity Reaction Status Date / Time No Known Allergies Allergy Verified 08/22/24 10:58 Home Medication ?Medication ?Instructions ?Recorded acetaminophen-caffeine 500 mg-65 1 tab PO PRN PRN 11/18/14 mg tablet (Excedrin Tension Headache) levothyroxine 112 mcg tablet 125 mcg PO DAILY 03/17/18 pantoprazole 40 mg tablet,delayed 40 mg PO DAILY 01/27/23 release albuterol sulfate 90 mcg/actuation 2 puff inhalation Q6H PRN 06/11/24 aerosol inhaler shortness of breath or wheezing #8.5 grams acetaminophen 500 mg tablet 500 mg PO ONCE 08/22/24 (Acetaminophen Extra Strength) Current Visit Medications: Current Medications Generic Name Dose Route Start Last Admin Trade Name Freq PRN Reason Stop Dose Admin Hyoscyamine Sulfate 0.125 mg 08/22/24 00:02 Hyoscyamine 0.125 Mg Sl/Oral/Chew SL 09/21/24 00:01 DIRECTED PRN Sodium Chloride 1,000 mls @ 30 mls/hr 08/22/24 10:15 Saline 1000ml Bag IV 09/21/24 10:14 INFUSION DAVID IV Miscellaneous Supplies 1 each 08/22/24 06:00 Iv Access IV 09/20/24 23:59 DIRECTED DAVID Sodium Chloride 0 ml 08/22/24 06:00 Normal Saline Flush 10 Ml Syr IV 09/20/24 23:59 PRN PRN Sodium Chloride 0 ml 08/22/24 06:00 Normal Saline 10 Ml Vial IJ 09/20/24 23:59 DIRECTED PRN Sterile Water 0 ml 08/22/24 06:00 Water,Injection,Sterile 10 Ml Vial IJ 09/20/24 23:59 DIRECTED PRN PFSH Active Problems Active Problems: Problem Status Onset Code N&V (nausea and vomiting) Acute R11.2 Fatty food intolerance Acute K90.49 Breast cancer Chronic C50.919 Acute lateral meniscus tear of right knee Acute S83.281A Right ACL tear Acute S83.511A Fracture of distal end of right fibula Acute ~09/06/23 S82.831A Tear of medial meniscus of right knee Acute S83.241A Lipoma of torso Acute D17.1 Medical History Medical History Hx of thyroid cancer GERD (gastroesophageal reflux disease) Brain concussion Surgical History Surgical History Hx of rotator cuff surgery R shoulder History of tonsillectomy Hx of appendectomy Hx of thyroidectomy Hx of hysterectomy Colonoscopy - [facility] (03/22/16) Dr Ballard, repeat in 7 yrs Tobacco Smoking/Tobacco Use Status: Never Alcohol Alcohol Intake: current Alcohol intake frequency: holidays/special occasions only Alcohol type: beer Substance Use Substance use: Never Substance use type: does not use Details: alcohol: unknown Vital Signs and Lab Results Vital Signs Most Recent Vital Signs in EMR: Most Recent Vital Signs Temp Pulse Resp BP Pulse Ox 36.2 C L 61 20 147/76 H 98 08/22/24 11:03 08/22/24 11:03 08/22/24 11:03 08/22/24 11:03 08/22/24 11:03 Lab Results Blood Type / Crossmatch: No Data to Display Complete Blood Count: No Data to Display Complete Metabolic Panel: No Data to Display Liver Function Panel: No Data to Display Coagulation Panel: No Data to Display Cardiac Panel: No Data to Display Arterial Blood Gas: No Data to Display Venous Blood Gas: No Data to Display Pancreas Panel: No Data to Display Thyroid Panel: No Data to Display Infectious Disease: No Data to Display Blood Cultures: No Data to Display Toxicology Panel: No Data to Display Anesthesia Assessment and Plan Anesthesia History Personal History: PONV and Delayed Emergence Family History: No Family History of Anesthesia Complications Exercise Tolerance Exercise Tolerance: Metabolic Equivalents>4 Pertinent Negatives Pertinent Negatives: No Major Cardiovascular Symptoms or Complaints, No Major Pulmonary Symptoms or Complaints and No History of CVA/TIA Cardiac & Pulmonary Exam Cardiac Exam: Normal S1/S2 Heart Sounds Pulmonary Exam: Clear Bilateral Breath Sounds Implantable Cardiac Device Does patient have a Pacemaker or an ICD?: No Airway Exam Known Difficult Airway: No Mallampati Class: 3 Mouth Opening: Normal (> 3cm) Thyromental Distance: Less than 3 cm Neck Range of Motion: Full ROM Neck Circumference: Normal Teeth Condition: Normal Dentition and Loose or Chipped (back left chilped not loose per patient) ASA Classification ASA Score: ASA 2 Emergency Case?: No NPO Status NPO Status: NPO Clears >2 hours, Solids >8 hours Anesthesia Plan Resuscitation Status: Full Code Anesthesia Technique: General Anesthesia Airway Planned: Natural Airway Monitors Used: Standard Monitors
[2024-08-22 11:17] VITALS: BMI 32.0
[2024-08-22] MEDS: Normal Saline 1,000 ML 30 ML IV (11:20)
--- NOTE | 2024-08-22 11:37 | STOM_PTH ---
PATIENT: Charlotte Ly LOC: [facility] U#:[id number] AGE/SX: 64/F ROOM: RE08/22/[address]: Lilia Swan : 1960 BED: DIS: 08/22/2024 SPEC #: [id number] RECD: 08/22/24 12:29 STATUS: YANELI RE #: [id number] SAILAJA: 08/22/24 11:[address]: Lilia Swan DEPT: Surgical Specimen RECD BY: Monika Bansal ENTERED: 08/22/24 12:31 SP TYPE: STOMACH OTHR DR: April Byers Tissues: 1 - BIOPSY BOWEL 2 - BIOPSY BOWEL 3 - STOMACH BIOPSY 4 - STOMACH BIOPSY 5 - ESOPHAGUS BIOPSY 6 - ESOPHAGUS BIOPSY Procedures: GROSS AND MICRO LEVEL 4 Comments: [id number]
[2024-08-22 11:52] VITALS: BP 118/80; PULSE 80; RESP 18; TEMP 36.3; O2SAT 96
[2024-08-22 12:31] VITALS: BP 131/69; PULSE 57; RESP 20; TEMP 36.4; O2SAT 98
--- NOTE | 2024-08-22 12:42 | W.ANESPOSTOP ---
Postoperative Evaluation Date, Time and Location Date Performed: 08/22/24 Time Performed: 12:28 Patient Location: Day Surgery Unit Vital Signs Most Recent Imported Vital Signs: Most Recent Vital Signs Temp Pulse Resp BP Pulse Ox 36.3 C L 80 18 118/80 96 08/22/24 11:52 08/22/24 11:52 08/22/24 11:52 08/22/24 11:52 08/22/24 11:52 Pain Score Most Recent Pain Score: Most Recent Pain Score Pain Level 0 08/22/24 11:52 Assessment Mental Status: Awake (Alert & Oriented to Patient Baseline) Airway and Respiratory Function: Patent airway with normal (patient baseline) respiratory exam Cardiovascular Function: Hemodynamically Stable Hydration Status: Adequately Hydrated Nausea & Vomiting: No Nausea or Vomiting Pain: Pt. Denies Any Pain Peripheral Nerve Block: Patient did not receive a nerve block
--- NOTE | 2024-08-22 13:09 | PDOC.DSDIS_ITS ---
Date of service: 08/22/24 Discharge Plan Disposition Patient Disposition: Home Condition: Good Discharge Details Attending Provider: Lilia Swan Primary Care Provider: April Byers Home Meds and New Rx's Prescriptions: New lansoprazole [Prevacid] 30 mg capsule,delayed release(DR/EC) 30 mg PO DAILY Qty: 30 12RF Continued albuterol sulfate 90 mcg/actuation HFA aerosol inhaler 2 puff inhalation Q6H PRN (Reason: shortness of breath or wheezing) Qty: 8.5 0RF Excedrin Tension Headache 1 TAB tablet 1 tab PO PRN PRN levothyroxine 112 MCG tablet 125 mcg PO DAILY acetaminophen [Acetaminophen Extra Strength] 500 mg tablet 500 mg PO ONCE Patient Comments: pt. reports taking 1000mg Discontinued pantoprazole 40 mg tablet,delayed release (DR/EC) 40 mg PO DAILY Discharge Instructions Additional Instructions: Post EGD Instruction ?You had anesthesia for your EGD/stomach scope today.? For your safety, please do the following for the next twenty-four (24) hours: Do Not operate a motor vehicle (car, truck, motorcycle, etc.) Do Not drink alcoholic beverages or use any recreational drugs for the first 24 hours or while taking pain medications. The medications in your body may have a reaction that can be dangerous. Do Not make any important decisions or sign any important papers You have just had a gastroscopy (EGD) or upper GI tract examination. It is important for your smooth recovery that you carefully follow the recommendations below. Do not hesitate to call if any questions should arise about your anesthesia, condition, or care. -Symptoms you may experience during the next 24 hours: ?1. Mild abdominal pain or excessive gas or a bloated feeling which improves with rest, liquids, eating? slightly, and walking as tolerated. 2. Drowsiness and/or forgetfulness because of the medications you were given. 3. A sore throat which you can treat with throat lozenges or by gargling with salt water 4-5 times a day. 4. Redness at the site of your IV which you can treat with warm compresses. SPECIAL INSTRUCTIONS: 1. You may resume your previous diet in one hour. We recommend a light meal to start, then progress as tolerated. 2. Restart regular medications in one hour. 3. No aspirin or non-steroidal containing medication for 24 hrs. 4. No lifting over 20 pounds or strenuous activity for the first 24 hours after your procedure. After 24 hours there are no restrictions on your activity, but you may feel fatigued for a few days. -Findings: Hiatal hernia -Medications: Change medication to Prevacid -Continue to follow lifestyle modifications: No alcohol, tobacco products, Aspirin or NSAID's (ibuprofen, Motrin, Naprosyn, aleve, etc).? Try to limit/avoid:? soda pop/any carbonated beverages, caffeine (including tea & chocolate), and acidic foods, (tomatoes, citrus, onions, peppermints) spicy or fried/fatty foods. Do not lie down for 30 minutes after eating, and do not eat 2 hours prior to bedtime. Avoid wearing tight fitting clothing/ belts. Follow up: -My office will send a letter with the results of your biopsy?s in 2-3wks time. -Order will be sent for HIDA scan. The hospital will call you to schedule -Ultrasound: No gallstones. Fatty liver -If you are still having pain 3 to 4 weeks after starting Prevacid, please call the office to make a follow-up appointment Call the office at [phone] (Office) or [phone] (Hospital), or go to the ER right away if you notice any of the followin. Vomiting blood and /or ?coffee ground? material. ?2. Worsening of abdominal pain or cramping. ?3. Trouble with breathing, cough, and/or fever (temperature above 101.5 F). 4. Increasing pain with swallowing. ?5. Chest pain. 6. Any new symptoms. 7. Worsening of the redness at the IV site Stand Alone Forms: Janine Love (DSU) Activity:: See above Diet:: See above Discharge Orders Discharge Orders: Discharge Order (Routine); Ordered 08/22/24 Ordered By: Lilia Swan DS: Diagnosis Discharge Diagnosis (1) Hiatal hernia with GERD: Status: Acute Asessment and Plan: Patient is seen and examined after they are endoscopy.? Patient has minimal sore throat.? They have been able to tolerate liquids.? They do not have any nausea vomiting.? They are not having any chest pain or shortness of breath.? They have been able to pass gas and are not having any abdominal pain or distention.? They have not vomited any blood.? The vital signs have been stable-see nursing notes. We discussed findings on their endoscopy. We reviewed the importance of lifestyle modification-see discharge instructions We reviewed any new medications that the patient may be prescribed-see discharge instructions Patient will either be sent a letter with the biopsy results or follow-up in the office-see discharge instructions. Patient was given explicit instructions to follow-up regarding post endoscopy- refer to discharge Patient verbalized understanding and discharged in stable and satisfactory condition.? See nursing notes. (2) N&V (nausea and vomiting): Status: Acute (3) Fatty food intolerance: Status: Acute
--- NOTE | 2024-08-22 22:36 | W.PM.ENDDOP ---
Date of service: 08/22/24 Time of Service: 13:00 Endoscopy Report DATE OF PROCEDURE: 08/22/24 PRE-OP DIAGNOSIS: medication refractory GERD POST-OP DIAGNOSIS: other (GERD/sliding H. hernia) SURGEON: Lilia Swan ANESTHESIA TYPE: General:No Airway PATHOLOGY: other COMPLICATIONS: None DISPOSITION: same day PROCEDURE DESCRIPTION: Informed consent was obtained from the pt; explaining the benefits and Risks: bleeding, infections, perforations {which could require surgery or antibiotics and prolonged hospital stay}, or ostomy, and complications of anaesthesia, suman aspiration). The patient was take to the procedure room and placed in a supine position. Monitors were applied and a time out was done. The patients name, date of , procedure type, allergies to medications and metal in their body was reviewed. A bite block was placed and the patient was sedated. Once sedated and comfortable an Olympus gastroscope (see RN notes for scope #) was advanced through the oropharynx which was grossly normal, and passed into the esophagus. The proximal and mid-esophagus were normal. The distal esophagus does not show any: dilation/strictures/varices/erosions or ulcers/bleeding noted. There is some mild esophagitis noted at the GE junction. The scope was advanced into the stomach and through the pylorus into the proximal jejunum. A bx is taken for celiac Dx. The duodenum was noted to be normal. Biopsies were done of the duodenal bulb.. The scope was retracted back into the stomach and biopsies were taken of the antrum. There were no gastritis/gastropathy/ ulcers/masses noted. The scope was retroflexed. The cardia and fundus were noted to be normal. There is a 2cm sliding type hiatal hernia noted. The scope was retracted back into the esophagus and biopsies were done of the GE junction (in all 4 quadrants) and distal esophagus (2cm above the GE junction) to rule out Berman's. All specimens are retrieved and no bleeding was noted. The Z line was irregular. The GE junction was at 36 cm. The scope was removed and the patient was woken up and taken back to [facility] in stable condition.
== END 2024-08-22 13:40 | disposition home or self-care (01) ==
PROVIDERS: PCP Nurse Practitioner; Visit Provider Surgery
PROC: 0DJ68ZZ Inspection of Stomach, Via Natural or Artificial Opening Endoscopic (ICD-10-PCS; CPT 43235; principal; 2024-08-22 10:15)
DX: K21.00 Gastro-esophageal reflux disease with esophagitis, without bleeding (principal); K44.9 Diaphragmatic hernia without obstruction or gangrene; R11.2 Nausea with vomiting, unspecified; K90.49 Malabsorption due to intolerance, not elsewhere classified; K31.89 Other diseases of stomach and duodenum
CPT/HCPCS: 43239; 88305; J2003; J2405; J2704

== ENCOUNTER 2024-09-02 01:25 | Outpatient (CLI) | payer OTHER, SELFPAY ==
--- NOTE | 2024-09-02 06:30 | DI.NM_ITS ---
Exam(s) NM HEPATOBILIARY CCK GRP EXAM: NM HEPATOBILIARY CCK GRP CLINICAL HISTORY: fatty food intolerance,nausea,vomiting,r11.2,k90.49. TECHNIQUE: Injected dose: 5 mCi Tc-99 mebrofenin Initial dynamic images: 60 minutes Post-Gallbladder fillin.02 mcg/kg CCK intravenously over a 20 minute infusion. Additional images: 45 minute dynamic during CCK administration. COMPARISON: US US ABDOMEN LIMITED from 08/18/2024 FINDINGS: Normal hepatic transit time. Prompt excretion into the small bowel. Prompt excretion into the gallbladder. Gallbladder ejection fraction: 91 percent IMPRESSION: 1. Normal gallbladder ejection fraction of 91 percent. SNM guidelines: Gallbladder visualization should be present by 3 hours. Delayed [id number]-[id number] cat sit beyond 60 min raises the suspicion for partial common bile duct (CBD) obstruction. Gallbladder ejection fraction <35% has a good correlation with acalculous disease (i.e., chronic acal culous cholecystitis, cystic duct syndrome, sphincter of Oddi disease).
[2024-09-02] MEDS: Sincalide 5 MCG VIAL 1.4 MCG IJ (12:20)
[2024-09-02] MEDS: Water,Injection,Sterile 10 ML VIAL IJ (12:21)
== END 2024-09-02 01:45 ==
LOC: DI 01:25
PROVIDERS: PCP Nurse Practitioner; Visit Provider Surgery
DX: K90.49 Malabsorption due to intolerance, not elsewhere classified (principal)
CPT/HCPCS: 78227; J2805

== ENCOUNTER 2025-02-11 14:09 | Outpatient (CLI) | payer OTHER, SELFPAY ==
--- NOTE | 2025-02-11 13:15 | DI.RAD_ITS ---
Exam(s) XR KNEE LT 3V AP,LAT,EMILIA EXAM: XR KNEE LT 3V AP,LAT,EMILIA CLINICAL HISTORY: LEFT KNEE PAIN. TECHNIQUE: 2D digital imaging was performed of the left knee. Three images were obtained. Merchant ,AP and lateral views were obtained. COMPARISON: There are no priors for comparison. FINDINGS: BONES: No acute fracture is present. No bony destructive lesion is seen. JOINTS: The knee is normally aligned. No joint effusion is seen. No loose body. SOFT TISSUE: Normal. IMPRESSION: Normal radiographs of the left knee. DATA REPOSITORY: RADIATION DOSE DELIVERED:
== END 2025-02-11 14:10 | disposition home or self-care (01) ==
LOC: DIORS 14:09
PROVIDERS: PCP Nurse Practitioner; Referring Provider Nurse Practitioner; Visit Provider Student in an Organized Health Care Education/Training Program
DX: M25.562 Pain in left knee (principal)
CPT/HCPCS: 73562

== ENCOUNTER 2025-03-04 02:48 | Outpatient (CLI) | payer OTHER, SELFPAY ==
--- NOTE | 2025-03-04 08:00 | DI.MRI_ITS ---
Exam(s) MR LOWER JOINT LT WO EXAM: MR LOWER JOINT LT WO CLINICAL HISTORY: ? MENISCAL TEAR,INTERNAL DERANGEMENT LT KNEE,M23.92. TECHNIQUE: Multiplanar multisequence MRI was performed. COMPARISON: CR XR KNEE LT 3V AP,LAT,EMILIA from 02/11/2025 FINDINGS: BONES: There is no fracture or contusion pattern. JOINTS: A small joint effusion is present. Articular cartilage: Patellofemoral joint: Articular cartilage is unremarkable. Medial femoral tibial joint: Articular cartilage is unremarkable. Lateral femoral tibial joint: Articular cartilage is unremarkable. LIGAMENTS/TENDONS: Anterior Cruciate: Unremarkable. Posterior Cruciate: Unremarkable. Medial Collateral:Unremarkable. Lateral Collateral ligament complex: Unremarkable. Extensor mechanism: Unremarkable. Medial retinaculum: Unremarkable. Lateral retinaculum: Unremarkable. Popliteus: Unremarkable. MENISCI: The medial meniscus is unremarkable. The lateral meniscus is unremarkable. MUSCLES: Edema in the proximal medial head of the gastrocnemius muscle. Mild thickening at the tendon origin at the mid lateral a medial femoral condyle. SOFT TISSUES: Unremarkable mild diffuse edema. IMPRESSION: Muscle strain at the proximal medial head of the gastrocnemius muscle and question mild partial tear/strain of the tendon near the medial femoral condyle. No evidence of meniscal tear. No evidence of ligament tear. DATA REPOSITORY:
== END 2025-03-04 03:08 ==
LOC: DI 02:48
PROVIDERS: PCP Nurse Practitioner; Visit Provider Student in an Organized Health Care Education/Training Program
DX: M23.92 Unspecified internal derangement of left knee (principal)
CPT/HCPCS: 73721